=== PATIENT | female | born 1960 | race African-American/Black ===

== ENCOUNTER 2018-03-09 17:36 | Emergency (ER) | payer BC ==
[2018-03-09] MEDS: ONDANSETRON (ODT) 4 MG TAB ODT (18:38)
[2018-03-09] MEDS: PHENAZOPYRIDINE 100 MG TAB PO (18:38)
[2018-03-09] MEDS: LEVOFLOXACIN 500 MG TAB PO (18:38)
[2018-03-09 18:45] LABS: URINE BLOOD (Dip) POC 2+ (NEGATIVE); URINE GLUCOSE (Dip) POC Negative (NEGATIVE); URINE KETONES (Dip) POC Negative (NEGATIVE); URINE LEUKOCYTE EST (Dip) POC 2+ (NEGATIVE); URINE NITRITE (Dip) POC Positive (NEGATIVE); URINE TOTAL PROTEIN POC 2+ (NEGATIVE)
[2018-03-09 18:45] LABS: URINE PH (Dip) POC 6.5 (5.0-8.5)
== END 2018-03-09 19:48 | disposition home or self-care (01) ==
LOC: E/R 17:36
DX: N30.91 Cystitis, unspecified with hematuria (principal); I10 Essential (primary) hypertension; Z87.891 Personal history of nicotine dependence; Z91.040 Latex allergy status
CPT/HCPCS: 81003; 99283

== ENCOUNTER 2018-04-13 08:29 | Day surgery (SDC) | payer BC ==
[2018-04-13 09:31] LABS: ADD MAN DIFF? NO
[2018-04-13 09:34] LABS: BASOPHILS % 0.2 % (0.0-2.0); EOSINOPHILS # 0.1 10^3/ul (0.0-0.5); EOSINOPHILS % 0.6 % (0.0-7.0); HEMATOCRIT 36.4 % (37.0-47.0); HEMOGLOBIN 11.8 g/dl (12.0-16.0); LYMPHOCYTES # 1.6 10^3/ul (0.8-2.9); LYMPHOCYTES % 19.2 % (15.0-51.0); MEAN CORPUSCULAR HGB CONC 32.4 g/dl (32.0-37.0); MEAN CORPUSCULAR VOLUME 89.4 fl (82.0-101.0); MEAN PLATELET VOLUME 10.6 fl (7.4-10.4); MONOCYTE # 0.6 10^3/ul (0.3-0.9); MONOCYTES % 7.1 % (0.0-11.0); NEUTROPHIL # 6.1 10^3/ul (1.6-7.5); NEUTROPHILS % 72.7 % (39.0-77.0); PLATELET COUNT 251 10^3/UL (140-415); RED BLOOD COUNT 4.07 10^6/ul (4.20-5.40)
[2018-04-13 09:34] LABS: WHITE BLOOD COUNT 8.3 10^3/ul (4.8-10.8)
[2018-04-13 09:38] LABS: POSITIVE DIFF @See below
[2018-04-13 09:51] LABS: INR 0.87; PROTIME 11.9 Sec (11.9-14.9); PT RATIO 0.9
[2018-04-13 10:46] LABS: ALANINE AMINOTRANSFERASE 21 IU/L (13-69); ALBUMIN 4.3 g/dl (3.3-4.9); ALBUMIN/GLOBULIN RATIO 1.26; ALKALINE PHOSPHATASE 92 IU/L (42-121); ANION GAP 7 (5-13); ASPARTATE AMINO TRANSFERASE 21 IU/L (15-46); BILIRUBIN,INDIRECT 0.1 mg/dl (0-1.1); BILIRUBIN,TOTAL 0.1 mg/dl (0.2-1.3); BLOOD UREA NITROGEN 13 mg/dl (7-20); CALCIUM 9.3 mg/dl (8.4-10.2); CARBON DIOXIDE 29 mmol/L (21-31); CHLORIDE 105 mmol/L (97-110); CREATININE 0.63 mg/dl (0.44-1.00); Estimated GFR > 60 mL/min (>60); GLUCOSE 104 mg/dl (70-220); SODIUM 141 mmol/L (135-144); TOTAL PROTEIN 7.7 g/dl (6.1-8.1)
[2018-04-13 10:54] LABS: POTASSIUM 3.2 mmol/L (3.5-5.1)
[2018-04-13] MEDS ORDERED: MIDAZOLAM 1 MG/ML 2 ML INJ (12:21)
[2018-04-13] MEDS ORDERED: METOCLOPRAMIDE 10 MG INJ (12:21)
[2018-04-13] MEDS ORDERED: FENTAnyl 50 MCG/ML VIAL (12:28)
[2018-04-13] MEDS ORDERED: ONDANSETRON 4 MG INJ (12:28)
[2018-04-13] MEDS ORDERED: PROPOFOL 20 ML (12:28)
[2018-04-13] MEDS ORDERED: MEPERIDINE 25 MG INJ IV (12:30)
[2018-04-13] MEDS ORDERED: LABETALOL HCL 20MG INJ IV (12:30)
[2018-04-13] MEDS ORDERED: hydrALAzine 20 MG INJ IV (12:30)
[2018-04-13] MEDS ORDERED: DIPHENHYDRAMINE 50 MG INJ IV (12:30)
[2018-04-13] MEDS ORDERED: HYDROmorphONE 1 MG/5 ML IV SYRINGE IV ×2 (12:30)
[2018-04-13] MEDS: LEVOFLOXACIN 500MG/D5W (PMX) 100 ML IVPB (12:34)
[2018-04-13] MEDS ORDERED: PHENYLephrine (100 MCG/ML) 5ML SYG (12:36)
[2018-04-13] MEDS: ONDANSETRON 4 MG INJ IV (13:22)
[2018-04-13] MEDS: HYDROmorphONE 1 MG/5 ML IV SYRINGE IV (13:22)
[2018-04-13] MEDS: HYDROCODONE/APAP (5/325) TAB PO (13:31)
== END 2018-04-13 14:53 | disposition home or self-care (01) ==
LOC: SDS 08:29
DX: N30.10 Interstitial cystitis (chronic) without hematuria (principal)
CPT/HCPCS: 52260; 71045; 80053; 85025; 85610; 85730; 87086; 93005